=== PATIENT | female | born 1995 | race Caucasian/White ===

== ENCOUNTER 2021-05-20 16:55 | Observation (INO) | payer BC ==
[~2021-05-20] VITALS: Ht 160 cm; Wt 86.2 kg
[2021-05-20 18:42] LABS: BILIRUBIN,URINE NEGATIVE (NEGATIVE); BLOOD, URINE NEGATIVE (NEGATIVE); CLARITY/URINE CLEAR (CLEAR); COLOR,URINE YELLOW (YELLOW); GLUCOSE,URINE NEGATIVE (NEGATIVE); KETONES,URINE NEGATIVE (NEGATIVE); LEUKOCYTE ESTERASE ,URINE NEGATIVE (NEGATIVE); NITRITE, URINE NEGATIVE (NEGATIVE); PROTEIN URINE NEGATIVE (NEGATIVE); UROBILINOGEN,URINE 0.2 (0.2-1.0)
== END 2021-05-20 19:00 | disposition home or self-care (01) ==
LOC: SPU 16:55
PROVIDERS: ADMIT Specialist; ATTEND Specialist
DX: O34.62 Maternal care for abnormality of vagina, second trimester (principal); N89.8 Other specified noninflammatory disorders of vagina; O99.891 Other specified diseases and conditions complicating pregnancy; M54.50 Low back pain, unspecified; O26.892 Other specified pregnancy related conditions, second trimester; R10.9 Unspecified abdominal pain; Z3A.20 20 weeks gestation of pregnancy
CPT/HCPCS: 81003; G0378

== ENCOUNTER 2021-05-23 22:03 | Observation (INO) | payer BC | END 2021-05-24 01:40 | disposition short-term general hospital (02) | LOC: SPU 22:03 | PROVIDERS: ADMIT Specialist; ATTEND Specialist | DX: O26.852 Spotting complicating pregnancy, second trimester (principal); Z3A.20 20 weeks gestation of pregnancy | CPT/HCPCS: 81002; G0378 ×2; G0379 ==